=== PATIENT | male | born 1990 | race Caucasian/White ===

== ENCOUNTER 2020-06-20 13:38 | Emergency (ER) | payer OTHER ==
[~2020-06-20] VITALS: Ht 180.3 cm; Wt 77.3 kg
[2020-06-20 13:58] VITALS: BP 128/74
== END 2020-06-20 15:05 | disposition home or self-care (01) ==
LOC: ED 14:36
DX: S83.412A Sprain of medial collateral ligament of left knee, initial encounter (principal); Y08.89XA Assault by other specified means, initial encounter; Y93.89 Activity, other specified; Y92.69 Other specified industrial and construction area as the place of occurrence of the external cause; Y99.0 Civilian activity done for income or pay
CPT/HCPCS: 29505; 99283

== ENCOUNTER 2020-06-22 12:15 | Emergency (ER) | payer OTHER ==
[~2020-06-22] VITALS: Ht 180.3 cm; Wt 82.8 kg
[2020-06-22 12:30] VITALS: BP 125/71
--- NOTE | 2020-06-22 12:36 | NUR ---
TASK RN NOTE: PT COMPLETING WORKMANS COMP PAPERWORK CURRENTLY.
== END 2020-06-22 13:01 | disposition home or self-care (01) ==
LOC: ED 12:30
DX: M25.562 Pain in left knee (principal)
CPT/HCPCS: 99281